=== PATIENT | male | born 1950 | race Caucasian/White ===

== ENCOUNTER 2017-11-11 00:40 | Inpatient (IN) | payer MEDICARE ==
[~2017-11-11] VITALS: Ht 182.9 cm; Wt 97.5 kg
[2017-11-11] MEDS ORDERED: methylPREDNISolone SOD SUCC 125 MG/2 ML ONE (00:51)
[2017-11-11] MEDS ORDERED: DIPHENHYDRAMINE 50 MG/ML, 1ML ONE (00:51)
[2017-11-11] MEDS ORDERED: FAMOTIDINE 20 MG/2 ML ONE (00:52)
[2017-11-11] MEDS ORDERED: DIPHENHYDRAMINE 50 MG/ML, 1ML IVPush ONE (01:00)
[2017-11-11] MEDS ORDERED: FAMOTIDINE 20 MG/2 ML IVPush ONE (01:00)
[2017-11-11] MEDS ORDERED: methylPREDNISolone SOD SUCC 125 MG/2 ML IVPush SCH ×2 (01:00→07:00)
[2017-11-11] MEDS ORDERED: LISI5TAB7 PO (01:08)
[2017-11-11] MEDS ORDERED: AMLO10TA2 PO (01:08)
[2017-11-11] MEDS ORDERED: HYDR25TA6 PO (01:08)
[2017-11-11] MEDS ORDERED: KETAMINE 10 MG/ML, 20ML ONE (01:24)
[2017-11-11] MEDS ORDERED: GLYCOPYRROLATE 0.2MG/1ML, 5ML IVPush ONE (01:30)
[2017-11-11] MEDS ORDERED: LIDOCAINE 4% TOPICAL SOLUTION 50 ML TP ONE (01:30)
[2017-11-11] MEDS ORDERED: OXYMETAZOLINE NASAL SPRAY 0.05%, 15ML ONE (01:45)
[2017-11-11] MEDS ORDERED: SUCCINYLCHOLINE 20 MG/ML, 10ML ONE (02:03)
[2017-11-11] MEDS ORDERED: PROPOFOL 10 MG/ML, 20ML ONE (02:03)
[2017-11-11] MEDS ORDERED: SODIUM CHLORIDE 0.9% 1,000 ML IV SCH (02:20)
[2017-11-11] MEDS ORDERED: hydrALAzine 20 MG/ML, 1ML IVPush PRN (02:30)
[2017-11-11] MEDS ORDERED: DOCUSATE 100 MG CAPSULE PO PRN (02:30)
[2017-11-11] MEDS ORDERED: LABETALOL 5MG/ML, 20ML IVPush PRN (02:30)
[2017-11-11] MEDS ORDERED: morphine SULFATE 10 MG/ML, 1ML IVPush PRN (02:30)
[2017-11-11] MEDS ORDERED: ONDANSETRON 2MG/ML, 2ML IVPush PRN (02:30)
[2017-11-11] MEDS ORDERED: MIDAZOLAM 1 MG/ML, 2ML ONE ×2 (02:47→03:40)
[2017-11-11] MEDS ORDERED: FENTANYL PF 100 MCG/2ML ONE (02:53)
[2017-11-11 02:54] LABS: BASOPHILS # (AUTO) 0.06 x10^3/uL (0-0.1); BASOPHILS % (AUTO) 1 % (0-1); EOSINOPHILS # (AUTO) 0.23 x10^3/uL (0-0.4); EOSINOPHILS % (AUTO) 3 % (1-7); LYMPHOCYTES # (AUTO) 2.34 x10^3/uL (1-3.4); LYMPHOCYTES % (AUTO) 26 % (22-44); MD NO; MEAN CORPUSCULAR HEMOGLOBIN 35.2 pg (27.5-34.5); MEAN CORPUSCULAR VOLUME 103.5 fL (81-97); MEAN PLATELET VOLUME 8.9 fL (7.4-10.4); MONOCYTES # (AUTO) 1.04 x10^3/uL (0.2-0.8); MONOCYTES % (AUTO) 12 % (2-9); NEUTROPHILS # (AUTO) 5.37 x10^3/uL (1.8-6.8); NEUTROPHILS % (AUTO) 59 % (42-75); PLATELET COUNT 286 x10^3/uL (130-400); RED BLOOD COUNT 5.17 x10^6/uL (4.38-5.82); RED CELL DISTRIBUTION WIDTH 13.5 % (9.4-14.8)
[2017-11-11] MEDS ORDERED: PROPOFOL 100 ML IV ONE (02:59)
[2017-11-11 03:06] LABS: ALANINE AMINOTRANSFERASE 25 U/L (12-78); ALBUMIN 3.8 g/dL (3.4-5.0); ANION GAP 11 mmol/L (5-15); CALCIUM 9.1 mg/dL (8.5-10.1); CHLORIDE 103 mmol/L (98-107); CREATININE 0.99 mg/dL (0.7-1.3)
[2017-11-11 03:15] LABS: ALKALINE PHOSPHATASE 61 U/L (45-117); TOTAL PROTEIN 8.6 g/dL (6.4-8.2)
[2017-11-11] MEDS ORDERED: SODIUM CHLORIDE 0.9% 1,000ML IVBOLUS ONE ×2 (03:30)
[2017-11-11] MEDS ORDERED: PHENYLEPHRINE 10 MG in SODIUM CHLORIDE 0.9% 249 ML IV PRN (03:30)
[2017-11-11 03:39] LABS: HCT (SEDRATE) 53.5 % (39.2-51.8)
[2017-11-11] MEDS: DIPHENHYDRAMINE 50 MG/ML, 1ML IVPush SCH ×6 (03:50→23:09)
[2017-11-11] MEDS: ENOXAPARIN 30 MG/0.3 ML SQ SCH ×2 (03:51→15:04)
[2017-11-11] MEDS: PROPOFOL 100 ML IV PRN ×6 (03:53→22:37)
[2017-11-11 04:00] VITALS: BP 92/56
[2017-11-11] MEDS ORDERED: POTASSIUM CHLORIDE 40 MEQ in SODIUM CHLORIDE 0.9% 500 ML IV ONE (04:00)
[2017-11-11] MEDS ORDERED: POTASSIUM CHLORIDE 10% 40 MEQ/30 ML UDC PO ONE (04:00)
[2017-11-11 04:30] VITALS: BP 92/52
[2017-11-11] MEDS ORDERED: MIDAZOLAM 1 MG/ML, 5ML IVPush ONE (04:30)
[2017-11-11] MEDS: NS + 20MEQ KCL 1,000 ML IV SCH ×4 (05:53→22:36)
[2017-11-11] MEDS: AMLODIPINE 5 MG TABLET PO SCH (07:44)
[2017-11-11] MEDS: HYDROCHLOROTHIAZIDE 25 MG TABLET PO SCH (07:45)
[2017-11-11] MEDS ORDERED: DEXAMETHASONE 4 MG TABLET PO SCH (08:00)
[2017-11-11 09:30] LABS: ANION GAP 9 mmol/L (5-15); CHLORIDE 111 mmol/L (98-107); CREATININE 0.88 mg/dL (0.7-1.3)
[2017-11-11] MEDS ORDERED: PROPOFOL 100 ML IV PRN (09:54)
[2017-11-11] MEDS: DEXAMETHASONE 4 MG/ML, 1ML IVPush SCH ×3 (09:59→22:03)
[2017-11-11] MEDS ORDERED: PHARMACY MAY ADJ FOR RENAL FX MC SCH (10:00)
[2017-11-11] MEDS ORDERED: LIDOCAINE-MPF 1%, 2ML ENDO PRN (10:00)
[2017-11-11] MEDS: FAMOTIDINE 20 MG/2 ML IVPush SCH ×2 (10:19→21:10)
[2017-11-11] MEDS ORDERED: DEXAMETHASONE 4 MG TABLET JT SCH (14:00)
[2017-11-11] MEDS: FENTANYL PF 100 MCG/2ML IVPush PRN (14:23)
[2017-11-12] MEDS: FENTANYL PF 100 MCG/2ML IVPush PRN ×3 (00:36→07:01)
[2017-11-12] MEDS: PROPOFOL 100 ML IV PRN ×2 (01:59→05:44)
[2017-11-12] MEDS ORDERED: SODIUM CHLORIDE 0.9% 1,000 ML IV SCH (02:20)
[2017-11-12] MEDS: DIPHENHYDRAMINE 50 MG/ML, 1ML IVPush SCH ×2 (03:25→07:38)
[2017-11-12] MEDS: ENOXAPARIN 30 MG/0.3 ML SQ SCH ×2 (03:26→15:30)
[2017-11-12] MEDS: DEXAMETHASONE 4 MG/ML, 1ML IVPush SCH (03:28)
[2017-11-12 04:00] VITALS: BP 104/68
[2017-11-12 04:28] LABS: BASOPHILS # (AUTO) 0.02 x10^3/uL (0-0.1); BASOPHILS % (AUTO) 0 % (0-1); EOSINOPHILS # (AUTO) 0.01 x10^3/uL (0-0.4); EOSINOPHILS % (AUTO) 0 % (1-7); LYMPHOCYTES # (AUTO) 0.58 x10^3/uL (1-3.4); LYMPHOCYTES % (AUTO) 6 % (22-44); MD NO; MEAN CORPUSCULAR HEMOGLOBIN 35.3 pg (27.5-34.5); MEAN CORPUSCULAR HGB CONC 33.8 g/dL (33.2-36.2); MEAN CORPUSCULAR VOLUME 104.5 fL (81-97); MEAN PLATELET VOLUME 8.2 fL (7.4-10.4); MONOCYTES % (AUTO) 5 % (2-9); NEUTROPHILS # (AUTO) 8.05 x10^3/uL (1.8-6.8); NEUTROPHILS % (AUTO) 89 % (42-75); PLATELET COUNT 246 x10^3/uL (130-400); RED CELL DISTRIBUTION WIDTH 13.4 % (9.4-14.8)
[2017-11-12 04:37] LABS: ANION GAP 6 mmol/L (5-15); CALCIUM 8.3 mg/dL (8.5-10.1); CHLORIDE 114 mmol/L (98-107); CREATININE 0.86 mg/dL (0.7-1.3)
[2017-11-12] MEDS ORDERED: POTASSIUM CHLORIDE 20 MEQ in SODIUM CHLORIDE 0.45% 1,000 ML IV SCH (07:00)
[2017-11-12] MEDS: AMLODIPINE 5 MG TABLET PO SCH (09:00)
[2017-11-12] MEDS: HYDROCHLOROTHIAZIDE 25 MG TABLET PO SCH (09:00)
[2017-11-12] MEDS ORDERED: FUROSEMIDE 20 MG/2 ML IV ONE (10:00)
[2017-11-12] MEDS ORDERED: DEXAMETHASONE 4 MG/ML, 1ML IVPush SCH (10:00)
[2017-11-12] MEDS ORDERED: DEXAMETHASONE 4 MG/ML, 1ML IVPush ONE (10:30)
[2017-11-12] MEDS: FAMOTIDINE 20 MG/2 ML IVPush SCH ×2 (10:38→21:11)
[2017-11-12] MEDS ORDERED: DEXAMETHASONE 4 MG/ML, 1ML ONE (10:39)
[2017-11-12] MEDS: AMPICILLIN/SULBACTAM 3 GM in SODIUM CHLORIDE 0.9% 100 ML IV SCH ×3 (10:40→21:10)
[2017-11-12] MEDS ORDERED: LIDOCAINE 4% TOPICAL SOLUTION 50 ML ONE (12:00)
[2017-11-13] MEDS: ENOXAPARIN 30 MG/0.3 ML SQ SCH ×2 (03:30→15:05)
[2017-11-13 04:00] VITALS: BP 142/73
[2017-11-13] MEDS: AMPICILLIN/SULBACTAM 3 GM in SODIUM CHLORIDE 0.9% 100 ML IV SCH (04:03)
[2017-11-13 04:24] LABS: BASOPHILS # (AUTO) 0.05 x10^3/uL (0-0.1); BASOPHILS % (AUTO) 0 % (0-1); EOSINOPHILS # (AUTO) 0.01 x10^3/uL (0-0.4); EOSINOPHILS % (AUTO) 0 % (1-7); LYMPHOCYTES # (AUTO) 1.81 x10^3/uL (1-3.4); LYMPHOCYTES % (AUTO) 13 % (22-44); MD NO; MEAN CORPUSCULAR HEMOGLOBIN 34.8 pg (27.5-34.5); MEAN CORPUSCULAR HGB CONC 33.9 g/dL (33.2-36.2); MEAN CORPUSCULAR VOLUME 102.8 fL (81-97); MEAN PLATELET VOLUME 8.6 fL (7.4-10.4); MONOCYTES # (AUTO) 1.13 x10^3/uL (0.2-0.8); MONOCYTES % (AUTO) 8 % (2-9); NEUTROPHILS # (AUTO) 10.54 x10^3/uL (1.8-6.8); NEUTROPHILS % (AUTO) 78 % (42-75); PLATELET COUNT 271 x10^3/uL (130-400); RED BLOOD COUNT 4.14 x10^6/uL (4.38-5.82); RED CELL DISTRIBUTION WIDTH 13.4 % (9.4-14.8)
[2017-11-13 04:29] LABS: ANION GAP 5 mmol/L (5-15); CHLORIDE 114 mmol/L (98-107); CREATININE 0.88 mg/dL (0.7-1.3)
[2017-11-13] MEDS ORDERED: POTASSIUM CHLORIDE 20 MEQ in SODIUM CHLORIDE 0.45% 1,000 ML IV SCH (07:00)
[2017-11-13] MEDS: AMLODIPINE 5 MG TABLET PO SCH (09:06)
[2017-11-13] MEDS: AMOXICILLIN/CLAV 875-125MG TABLET PO SCH ×2 (09:06→22:01)
[2017-11-13] MEDS: HYDROCHLOROTHIAZIDE 25 MG TABLET PO SCH (09:06)
[2017-11-13 11:30] VITALS: BP 147/72
[2017-11-13 18:35] VITALS: BP 132/86
[2017-11-14 01:09] VITALS: BP 116/72
[2017-11-14] MEDS: ENOXAPARIN 30 MG/0.3 ML SQ SCH (04:20)
[2017-11-14 05:25] LABS: BASOPHILS # (AUTO) 0.09 x10^3/uL (0-0.1); BASOPHILS % (AUTO) 1 % (0-1); EOSINOPHILS # (AUTO) 0.11 x10^3/uL (0-0.4); EOSINOPHILS % (AUTO) 1 % (1-7); LYMPHOCYTES # (AUTO) 2.15 x10^3/uL (1-3.4); LYMPHOCYTES % (AUTO) 24 % (22-44); MD NO; MEAN CORPUSCULAR HEMOGLOBIN 34.5 pg (27.5-34.5); MEAN CORPUSCULAR HGB CONC 33.8 g/dL (33.2-36.2); MEAN PLATELET VOLUME 8.2 fL (7.4-10.4); MONOCYTES # (AUTO) 0.95 x10^3/uL (0.2-0.8); MONOCYTES % (AUTO) 11 % (2-9); NEUTROPHILS # (AUTO) 5.51 x10^3/uL (1.8-6.8); NEUTROPHILS % (AUTO) 63 % (42-75); PLATELET COUNT 265 x10^3/uL (130-400); RED BLOOD COUNT 4.43 x10^6/uL (4.38-5.82); RED CELL DISTRIBUTION WIDTH 13.5 % (9.4-14.8)
[2017-11-14 05:36] LABS: CHLORIDE 105 mmol/L (98-107)
[2017-11-14 05:42] LABS: ANION GAP 8 mmol/L (5-15); CALCIUM 8.3 mg/dL (8.5-10.1); CREATININE 0.84 mg/dL (0.7-1.3)
[2017-11-14 05:43] LABS: TRIGLYCERIDES 192 mg/dL (50-200)
[2017-11-14] MEDS ORDERED: POTASSIUM CHLORIDE 20 MEQ TAB.ER.PRT PO ONE (06:00)
[2017-11-14 07:45] VITALS: BP 132/84
[2017-11-14] MEDS ORDERED: ALBUTEROL SULFATE 2.5 MG/3 ML NPPB PRN (09:30)
[2017-11-14] MEDS ORDERED: FLUTICASONE/VILANTEROL 100-25MCG/INH INH SCH (09:30)
[2017-11-14] MEDS: AMOXICILLIN/CLAV 875-125MG TABLET PO SCH (09:37)
[2017-11-14] MEDS: AMLODIPINE 5 MG TABLET PO SCH (09:37)
[2017-11-14] MEDS: HYDROCHLOROTHIAZIDE 25 MG TABLET PO SCH (09:37)
[2017-11-14] MEDS ORDERED: AMOX1TAB12 PO (12:03)
[2017-11-14] MEDS ORDERED: ALBU90AE INH (12:03)
[2017-11-14] MEDS ORDERED: FLUT1AER INH (12:03)
[2017-11-14 14:20] VITALS: BP 137/79
== END 2017-11-14 14:26 | disposition home or self-care (01) | DRG 166 ==
LOC: OR 02:00 → EDIP 02:08 → CCU 02:58 → 4NOR 11-13 11:41
PROVIDERS: ADMIT Family Medicine; ATTEND Family Medicine
PROC: 5A1935Z Respiratory Ventilation, Less than 24 Consecutive Hours (ICD-10-PCS; 2017-11-11)
PROC: 0BH17EZ Insertion of Endotracheal Airway into Trachea, Via Natural or Artificial Opening (ICD-10-PCS; 2017-11-11)
PROC: 0B9J8ZZ Drainage of Left Lower Lung Lobe, Via Natural or Artificial Opening Endoscopic (ICD-10-PCS; principal; 2017-11-12)
PROC: 0B9F8ZZ Drainage of Right Lower Lung Lobe, Via Natural or Artificial Opening Endoscopic (ICD-10-PCS; 2017-11-12)
DX: J96.00 Acute respiratory failure, unspecified whether with hypoxia or hypercapnia (principal); J69.0 Pneumonitis due to inhalation of food and vomit; Z99.11 Dependence on respirator [ventilator] status; I95.9 Hypotension, unspecified; J44.9 Chronic obstructive pulmonary disease, unspecified; E86.0 Dehydration; J98.11 Atelectasis; T78.3XXA Angioneurotic edema, initial encounter; E87.6 Hypokalemia; I10 Essential (primary) hypertension; T46.4X5A Adverse effect of angiotensin-converting-enzyme inhibitors, initial encounter; E66.9 Obesity, unspecified; Z68.29 Body mass index [BMI] 29.0-29.9, adult; F17.200 Nicotine dependence, unspecified, uncomplicated; F12.90 Cannabis use, unspecified, uncomplicated
CPT/HCPCS: 31622; 36415; 36600; 71045; 74018; 80048; 80053; 82803; 83735; 84478; 85025; 85651; 86140; 86160; 87070; 87081; 87205; 93005; 94002; 94003; 96374; 96375; J0295; J1100; J1650; J2250; J2704; J3010; J3480; J3490; J0330; J1200; J1940; J2930; J7030; J7040; S0028